=== PATIENT | female | born 1945 | race Two or more races ===

== ENCOUNTER → 2024-02-11 07:37 | Outpatient (REF) | payer MEDICARE, OTHER, SELFPAY | LOC: EMG 07:37 | PROVIDERS: ATTENDING PHYSICIAN Orthopaedic Surgery; FAMILY PHYSICIAN Internal Medicine Cardiovascular Disease | DX: R20.0 Anesthesia of skin (principal) | CPT/HCPCS: 95886; 95911 ==

== ENCOUNTER → 2024-09-13 15:47 | Outpatient (REF) | payer MEDICARE, OTHER, SELFPAY | LOC: HWRCS 15:47 | PROVIDERS: ATTENDING PHYSICIAN Internal Medicine Cardiovascular Disease; FAMILY PHYSICIAN Internal Medicine | DX: R06.02 Shortness of breath (principal); I10 Essential (primary) hypertension; E78.5 Hyperlipidemia, unspecified | CPT/HCPCS: 93306 ==

== ENCOUNTER → 2025-04-14 14:27 | Outpatient (REF) | payer MEDICARE, OTHER, SELFPAY | LOC: EMG 14:27 | PROVIDERS: ATTENDING PHYSICIAN Internal Medicine Rheumatology; FAMILY PHYSICIAN Internal Medicine | DX: M60.9 Myositis, unspecified (principal); M47.897 Other spondylosis, lumbosacral region; R20.0 Anesthesia of skin | CPT/HCPCS: 95886; 95909 ==